=== PATIENT | female | born 1960 | race Caucasian/White ===

== ENCOUNTER 2020-07-17 09:33 | Outpatient (CLI) | payer OTHER, SELFPAY ==
--- NOTE | ~2020-07-17 | MM_ITS ---
EXAMINATION: MM screening [facility] BI w cole HISTORY: Screening mammogram TECHNIQUE: Craniocaudal and mediolateral oblique 3-D tomosynthesis images were obtained and synthetic 2-D images were generated. CAD analysis was submitted and interpreted. COMPARISON: 01/03/2019 bilateral digital screening mammogram 08/31/2015 diagnostic right digital mammogram 08/24/2015 bilateral digital screening mammogram BREAST PARENCHYMAL COMPOSITION: There are scattered areas of fibroglandular density. FINDINGS: Left axillary tail stable appearing lymph nodes. There is no evidence of suspicious mass, c alcification, or architectural distortion to suggest malignancy in either breast. There has been no s uspicious interval change. IMPRESSION: 1. No mammographic evidence of malignancy. 2. Recommend routine screening mammography in one year. BI-RADS Category 2: Benign finding(s). Reviewed, dictated and finalized at location A.
== END 2020-07-17 09:34 | disposition home or self-care (01) ==
LOC: ANHIMG 09:35
PROVIDERS: Visit Provider Obstetrics & Gynecology
DX: Z12.31 Encounter for screening mammogram for malignant neoplasm of breast (principal)
CPT/HCPCS: 77063; 77067

== ENCOUNTER 2022-06-25 08:25 | Outpatient (CLI) | payer OTHER, SELFPAY ==
--- NOTE | ~2022-06-25 | MM_ITS ---
EXAMINATION: MM screening [facility] BI w cole HISTORY: Screening mammogram TECHNIQUE: Craniocaudal and mediolateral oblique 3-D tomosynthesis images were obtained and synthetic 2-D images were generated. CAD analysis was submitted and interpreted. COMPARISON: 07/18/2019, 01/03/2019, 08/31/2015, 08/24/2015 BREAST PARENCHYMAL COMPOSITION: There are scattered areas of fibroglandular density. FINDINGS: No suspicious mass, calcification, or architectural distortion are identified in either yevgeniy ast to suggest malignancy. There has been no suspicious interval change. IMPRESSION: 1. No mammographic evidence of malignancy. 2. Recommend routine screening mammography in one year. BI-RADS Category 1: Negative Reviewed, dictated and finalized at location A.
--- NOTE | ~2022-06-25 | DEXA_ITS ---
Bone Density Report Name: VAN MCDONNELL Age: 62 Sex: Female Ethnicity: White Date of : 1960 Indication: postmenopausal; screening for osteoporosis; height loss; Referring Provider: HARLEY RAMIREZ Study: Bone densitometry was performed. Exam Date: June 25, 2022 Accession number: [id number] Bone Density: Region BMD T-score Z-score Classification AP Spine(L1-L4) 0.866 -1.6 -0.2 Osteopenia Femoral Neck (Left) 0.650 -1.8 -0.5 Osteopenia Total Hip (Left) 0.707 -1.9 -0.9 Osteopenia Femoral Neck (Right) 0.697 -1.4 0.0 Osteopenia Total Hip (Right) 0.735 -1.7 -0.7 Osteopenia Total Hip Mean 0.721 -1.8 -0.8 Osteopenia World Health Organization criteria for BMD impression classify patients as: Normal (T-score at or above -1.0), Osteopenia (T-score between -1.0 and -2.5), or Osteoporosis (T-score at or below -2.5). 10-year Fracture Risk(1): Major Osteoporotic Fracture 8.7% Hip Fracture 0.9% Reported Risk Factors: [place] (), Neck BMD=0.650, BMI=23.5 (1) FRAX(R) Version 3.08. Fracture probability calculated for an untreated patient. Fracture probability may be lower if the patient has received treatment. Clinical Information Provided by Patient: Has used the following medications: Vitamin D, Calcium Patient maximum height was 67 Menopause Age: 51 Drinks caffeinated beverages Onset of menses at age 12 Number of children 6 Impression: The patient has low bone mass, based on the Left Total Hip T-score. The patient has an estimated ten-year risk of hip fracture of 0.9% and an estimated ten-year risk of major fracture of 8.7%, based on the WHO FRAX algorithm. Discussion: BONE DENSITY IS LOW AT ONE OR MORE SKELETAL SITES. This patient's lowest T-score is low at one or more skeletal sites. It meets the World Health Organization's (WHO) criteria for ?low bone mass? (T-score between -1.0 and -2.5). The patient's 10-year risk of fracture as calculated by FRAX is less than the threshold where pharmacological therapy is recommended by the National Osteoporosis Foundation (NOF). However, all treatment decisions require clinical judgment and consideration of individual patient factors, including patient preferences, comorbidities, previous drug use, risk factors not captured in the FRAX model (e.g., frailty, falls, vitamin D deficiency, increased bone turnover, interval significant decline in bone density) and possible under or overestimation of fracture risk by FRAX. The patient should follow a healthful lifestyle (good nutrition with adequate calcium and vitamin D, and appropriate weight-bearing exercise). Follow-Up: Consider repeating this study in 2 to 3 years to reassess this patient's status, or sooner if there is some new clinical indication. Reported by: [facility] on
== END 2022-06-25 08:26 | disposition home or self-care (01) ==
PROVIDERS: Visit Provider Obstetrics & Gynecology
DX: Z12.31 Encounter for screening mammogram for malignant neoplasm of breast (principal); M85.88 Other specified disorders of bone density and structure, other site; M85.852 Other specified disorders of bone density and structure, left thigh; M85.851 Other specified disorders of bone density and structure, right thigh
CPT/HCPCS: 77063; 77067; 77080

== ENCOUNTER 2022-11-06 11:35 | Observation (INO) | payer OTHER, SELFPAY ==
[2022-11-06] VITALS (7 sets, daily range): BP systolic 108–122; BP diastolic 66–91; PULSE 91–98; RESP 14–21; TEMP 36.1–36.7; O2SAT 100; BMI 23.4
--- NOTE | ~2022-11-06 | CT_ITS ---
EXAMINATION: CTA chest PE protocol DATE: 11/06/2022 14:55 INDICATION: Tachycardia, shortness of breath TECHNIQUE: Computed tomography angiography (CTA) of the chest was performed with 100 mL Omnipaque-350 intravenous contrast timed to evaluate the pulmonary arteries. Coronal maximum intensity projection 3D-reconstructions were created by the technologist. The dose-length product (DLP) was 196.98 mGy-cm. Automated exposure control and iterative reconstruction technique were employed. COMPARISON: None. FINDINGS: The pulmonary arteries are well-opacified. No pulmonary embolism is identified. There is mi ld dependent atelectasis. The lungs are free of focal airspace opacities. No pleural effusion or pneu mothorax. No pathologically enlarged thoracic lymph nodes are identified. The heart size is normal. S tones are present in the nondistended gallbladder. There is moderate thoracic spondylosis. IMPRESSION: 1. No pulmonary embolus identified. Reviewed, dictated and finalized at location F.
--- NOTE | 2022-11-06 13:51 | ECG_ITS ---
Measurements Intervals [place] Rate: 89 P: 64 AK: 151 QRS: -18 QRSD: 91 T: 44 QT: 354 QTc: 433 Interpretive Statements SINUS RHYTHM POSSIBLE LEFT ATRIAL ENLARGEMENT INCOMPLETE RIGHT BUNDLE BRANCH BLOCK DELAYED PRECORDIAL R/S TRANSITION BORDERLINE ECG NO PREVIOUS ECG AVAILABLE FOR COMPARISON Electronically Signed On 11-06-2022 14:26:36 CDT by Eder Christy D.O.
[2022-11-06 14:45] LABS: Estimated CRCL calculation 72 ml/min; Estimated Glomerular Filt Rate > 60
[2022-11-06 14:45] LABS: Basophils Percent Auto 0.6 % (0.2-1.2); Eosinophils Percent Auto 0.8 % (0-4.4); Hematocrit 33.6 % (37.0-47.0); Hemoglobin 10.9 g/dL (12.0-15.0); Immature Granulocyte Absolute 0.01 K/mm3 (0.00-0.031); Immature Granulocyte Percent A 0.2 % (0-0.5); Lymphocytes Absolute Auto 1.08 K/mm3 (0.9-3.2); Lymphocytes Percent Auto 22.8 % (18.3-44.2); Mean Corpuscular HGB Conc 32.4 g/dl (32-36); Mean Corpuscular Hemoglobin 30.8 pg (26-34); Mean Corpuscular Volume 94.9 fl (80-100); Mean Platelet Volume 8.3 fl (7.4-10.4); Monocytes Absolute Auto 0.4 K/mm3 (0.1-0.6); Monocytes Percent Auto 8.4 % (2.6-8.5); Neutrophils Absolute Auto 3.2 K/mm3 (1.3-6.7); Neutrophils Percent Auto 67.2 % (45.5-73.1); Platelet Count Result 354 k/mm3 (150-375); Red Blood Count 3.54 M/mm3 (4.2-5.4); Red Cell Distribution Width 14.2 % (11.5-14.5); White Blood Count 4.7 K/mm3 (4.5-10.0)
--- NOTE | 2022-11-06 14:45 | ED.GENADULT ---
HPI - General Adult General Chief complaint: Recheck/Abnormal Lab/Rx Stated complaint: high heartrate Time Seen by Provider: 11/06/22 13:22 History of Present Illness HPI narrative: Shefali Hancock is a 62 y/o female who presents with reports of feeling well up until 2 days ago when she noticed that her heart rate was 140, ( she then states the following day yesterday ) she felt generalized tired and she noticed that her heart rate was intermittently high, the highest was 140. Today she got up and she felt a little short of breath when she walked up the stairs which was new for her. Denies cough/ fever /chills /chest pain / hx of blood clots/ OK/ or any other cardiac hx. She also reports that she is about 3 weeks post a left hip surgery / that she had done at [place]. She saw her PCP today and was sent here for further evaluation Patient denies Related Data Home Medications Medication Instructions Recorded Confirmed vitamin C 500 mg-multivitamin with tablet PO 02/01/19 03/30/21 minerals chewable tablet (Emergen-C) Allergies Allergy/AdvReac Type Severity Reaction Status Date / Time Sulfa (Sulfonamide Allergy Unknown Unknown Verified 11/06/22 11:47 Antibiotics) sulfanilamide Allergy Unknown Unknown Verified 11/06/22 11:47 sulfite Allergy Unknown Unknown Verified 11/06/22 11:47 Review of Systems Review of Systems: CONSTITUTIONAL: Denies fever, chills, or sweats. EYES: Denies visual changes, redness, or discharge. ENT: Denies rhinorrhea, congestion, sore throat, or otalgia. CARDIOVASCULAR: Denies chest pain, reports noticing heart rate go up to 140 for the past two days, denies any edema. RESPIRATORY: Denies cough, reports having some SOB with exertion that started today. GASTROINTESTINAL: Denies abdominal pain, nausea, vomiting, or diarrhea. GENITOURINARY: Denies dysuria or hematuria. SKIN: Denies rash or itching. MUSCULOSKELETAL: Denies back pain, joint pain, or myalgia. NEUROLOGIC: Denies headache, numbness, dizziness, or weakness. PSYCHIATRIC: Denies anxiety or depression. [facility] Past Medical History Medical History (Updated 11/06/22 @ 18:55 by Pavithra Davis) Hip replacement planned Surgical History Surgical History H/O colposcopy with cervical biopsy Social History Social History (Updated 11/06/22 @ 10:52 by Saba Alex MA) Smoking status: Former smoker Second hand tobacco smoke exposure: No Alcohol intake: current Drinks per week: 5 Substance use: never Substance use type: does not use Lack of Transportation: No Lack of Food: Never True Current Housing: I Have Housing Concerned About Future Housing: No Difficulty Paying Gas/Electric Bills: No Difficulty Paying for Meds: No Currently Unemployed: No Education: Decline to Answer Difficulty w/ Childcare or Family Care: No Exam Narrative: GENERAL: Well-appearing, well-nourished, and in no acute distress. HEAD: Normocephalic, atraumatic. EYES: PERRLA and EOMI. ENT: Nares clear, no rhinorrhea or epistaxis. Mucous membranes moist. Oropharynx without tonsillar hypertrophy exudate or other lesions. NECK: Supple. No adenopathy or masses. No carotid bruits or JVD CHEST: Clear to auscultation. No respiratory distress. No wheezes rales or rhonchi HEART: Regular rate and tachy at 98 rhythm. Normal peripheral pulses. ABDOMEN: Soft, nontender, nondistended, normal active bowel sounds. EXTREMITIES: Normal range of motion. No edema. SKIN: Warm, dry, no rash. NEURO: No focal deficits. Alert and oriented x3. PSYCH: Normal mood and affect. Course Vital Signs Vital signs: Vital Signs Temperature 36.1 C L 11/06/22 11:47 Pulse Rate 98 11/06/22 11:47 Respiratory Rate 18 11/06/22 11:47 Blood Pressure 122/89 11/06/22 11:47 Pulse Oximetry 100 11/06/22 11:47 Temperature 36.1 C L 11/06/22 11:47 Pulse Rate 98
[2022-11-06 14:56] LABS: Alanine Aminotransferase 30 U/L (6-35); Albumin Level 4.7 g/dL (3.5-5.1); Alkaline Phosphatase 89 U/L (38-126); Anion Gap 7 mmol/L (8-16); Aspartate Amino Transferase 39 U/L (14-36); Bilirubin,Total 0.7 mg/dL (0.2-1.3); Blood Urea Nitrogen 13 mg/dL (7-17); Calcium 9.5 mg/dL (8.4-10.2); Carbon Dioxide 29 mmol/L (22-30); Chloride 101 mmol/L (98-107); Estimated CRCL calculation 72 ml/min; Estimated Glomerular Filt Rate > 60; Glucose 94 mg/dL (65-110); Lipase 85 U/L (23-300); Potassium 4.6 mmol/L (3.4-5.0); Sodium 137 mmol/L (137-145)
[2022-11-06 14:57] LABS: Prothrombin Time 13.3 Seconds (11.1-14.7)
[2022-11-06 15:07] LABS: NT Pro B Type Natriuretic Pept 781 pg/mL (19.9-100); Troponin I < 0.012 ng/mL (0.000-0.034)
[2022-11-06 18:26] LABS: Troponin I < 0.012 ng/mL (0.000-0.034)
--- NOTE | 2022-11-06 21:44 | PM.IMHP ---
H&P: HPI History of Present Illness Date/Time: 11/06/22 21:44 Chief Complaint: Tachycardia, SOB Narrative: 62 y/o F presents here with tachycardia and SOB with exertion with PMH of bilateral hip replacement, L side done 3 weeks ago. Patient presents here with new shortness of breath on exertion and an elevated heart rate while at rest. in wears smart watch, this alerted her that her heart rate was in the 140s. initial occurrence was Thursday around , Thursday she reports that her heart rate was elevated for most of the day. She also noted that her heart rate was elevated while she was resting watching TV and when she had first woken up in the morning. no association to activity level per patient history. patient saw her PCP this morning, described events to her and it was recommended she seek further care. only medication she is currently taking is Tylenol, 1 g t.i.d. for hip pain related to her recent operation. She did make note that after her operation, she required 1 unit of blood. Jean Paul+. She reports her hemoglobin was 7.5, her baseline is on average around 12.3. she denies anxiety, recent weight loss, diaphoresis, constipation, diarrhea, or nausea. No recent flu-like symptoms, fever, or cough. Review of Systems Review of Systems: All systems reviewed & are unremarkable except as noted in HPI and below [facility] Surgical History Surgical History (Updated 11/06/22 @ 21:56 by Helen Ryan APRN) History of colposcopy with cervical biopsy History of left hip replacement History of right hip replacement Social History Social History (Updated 11/06/22 @ 21:57 by Helen Ryan APRN) Social History: Currently lives at home alone. Surrogate decision maker- Helen Hancock (daughter). Smoking status: Former smoker Second hand tobacco smoke exposure: No Additional smoking assessment comments: 0.5 ppd, 20 years Alcohol intake: current Drinks per week: 5 Substance use: never Substance use type: does not use Lack of Transportation: No Lack of Food: Never True Current Housing: I Have Housing Concerned About Future Housing: No Difficulty Paying Gas/Electric Bills: No Difficulty Paying for Meds: No Currently Unemployed: No Education: Decline to Answer Difficulty w/ Childcare or Family Care: No Meds Home Medications and Allergies Home Medications Medication Instructions Recorded Confirmed Type acetaminophen 500 mg tablet 1,000 mg PO Q8H 11/06/22 11/06/22 History Allergies Allergy/AdvReac Type Severity Reaction Status Date / Time Sulfa (Sulfonamide Allergy Unknown Unknown Verified 11/06/22 11:47 Antibiotics) sulfanilamide Allergy Unknown Unknown Verified 11/06/22 11:47 sulfite Allergy Unknown Unknown Verified 11/06/22 11:47 Vital Signs Vital Signs - 24 hr 11/06/22 11:47 11/06/22 13:18 11/06/22 14:30 Temperature 97 F L Pulse Rate 98 91 Respiratory Rate 18 14 Blood Pressure 122/89 110/84 Pulse Oximetry 100 100 100 Oxygen Delivery Room Air 11/06/22 17:39 11/06/22 21:07 Temperature Pulse Rate 98 94 Respiratory Rate 16 21 H Blood Pressure 122/91 H 113/77 Pulse Oximetry 100 100 Oxygen Delivery H&P: Results Labs Labs: Short CBC 11/06/22 Range/Units 14:34 WBC 4.7 (4.5-10.0) K/mm3 Hgb 10.9 L (12.0-15.0) g/dL Hct 33.6 L (37.0-47.0) % Plt Count 354 (150-375) k/mm3 BMP 11/06/22 11/06/22 14:34 14:44 Sodium 137 Potassium 4.6 Chloride 101 Carbon Dioxide 29 BUN 13 Creatinine 0.60 L 0.60 L Glucose 94 Calcium 9.5 Cardiac Enzymes 11/06/22 11/06/22 Range/Units 14:34 17:54 Troponin I < 0.012 < 0.012 (0.000-0.034) ng/mL Liver Function 11/06/22 Range/Units 14:34 Total Bilirubin 0.7 (0.2-1.3) mg/dL AST 39 H (14-36) U/L ALT 30 (6-35) U/L Alkaline Phosphatase 89 (38-126) U/L Albumin 4.7 (3.5-5.1) g/dL Assessment and Plan Assessment and plan (
--- NOTE | 2022-11-06 22:28 | ADMGEN ---
This patient, Shefali Hancock, was admitted to Medical Room 247-. Patient/family oriented to hospital policies and general routines including ID bracelet, bed and alarms, visiting hours, pain management, procedures, bathroom and other care routines, personal items, smoking policy, room service/diet, and visiting hours. Information on how to activate the Rapid Response Team has been discussed. Patient/Family are encouraged to report perceived risks to care and to ask questions if they do not understand what they are told or what they should do.
[2022-11-07] VITALS: PULSE 96
--- NOTE | 2022-11-07 | ECHO_ITS ---
Patient Info Name: Shefali Hancock Age: 62 years : 1960 Gender: Female Ht: 64 in Wt: 143 lbs BSA: 1.72 m2 HR: 96 bpm BP: 108 / 66 mmHg Heart Rhythm: Sinus Rhythm Technical Quality: Fair Exam Date: 11/07/2022 12:15 PM Exam Location: [facility] Pulmonary Patient Status: Outpatient Admit Date: 11/06/2022 Staff Ordering Physician: Helen Ryan APRN Cyber Crime Investigator: Komal Tracey RDCS Attending Provider: Salo Hill MD Referring Physician: Shelby GILL; Exam Type: CA echo doppler color flow Study Info Indications - mildly elevated BNP with tachycardia and sob Complete two-dimensional, color flow and Doppler transthoracic echocardiogram is performed. Summary 1. Complete two-dimensional, color flow and Doppler transthoracic echocardiogram is performed. 2. Normal left ventricular size systolic and diastolic function. 3. Normal appearing right ventricle. 4. Normal appearing valves. Left Ventricle Left ventricular chamber dimension is normal. Left ventricular systolic function is normal, estimated at 60-65%. The left ventricular diastolic function is normal. Right Ventricle Right ventricular chamber dimension is normal. Left Atria Left atrial chamber dimension is normal. Right Atria Right atrial chamber dimension is normal. Aortic Valve The aortic valve is trileaflet. There is mild aortic valve sclerosis. Pulmonic Valve The pulmonic valve is not well visualized. Mitral Valve The mitral valve has normal leaflets. Tricuspid Valve The tricuspid valve leaflets are normal. Pericardium/Pleural The pericardium appears normal. Aorta The aortic root size at the sinus of Valsalva is normal. Left Ventricular Outflow Tract Name Value Normal LVOT 2D LVOT Diameter 2.0 cm LVOT Doppler LVOT Peak Gradient 7 mmHg LVOT Mean Gradient 3 mmHg LVOT VTI 21 cm LVOT VTI/AV VTI Ratio 0.7 LVOT Stroke Volume 64 ml LVOT CO 5.6 l/min LVOT CI 3.3 l/min/m2 Pulmonic Valve Name Value Normal RVOT Doppler RVOT Peak Gradient 2 mmHg PV Doppler PV Peak Gradient 4 mmHg Mitral Valve Name Value Normal MV Doppler MV Decel Pierce 698 cm/s2 MV PHT 33 ms MV Area (PHT) 6.7 cm2 4.0-5.0 MV Diastolic Function MV E Peak
[2022-11-07 04:00] VITALS: PULSE 96
[2022-11-07 06:00] VITALS: BP 103/67; PULSE 93; RESP 16; TEMP 36.9; O2SAT 98
[2022-11-07 08:00] VITALS: PULSE 88
[2022-11-07 12:00] VITALS: PULSE 87
--- NOTE | 2022-11-07 15:04 | PM.CNCAR ---
Assessment and Plan Assessment and plan (1) Tachycardia: Code(s): R00.0 - Tachycardia, unspecified Status: Acute Plan this is an otherwise relatively healthy 62-year-old lady who recently had hip replacement done at [place]. She came to the hospital with the observation that her heart rate was quite rapid for a couple of days. Objectively that does not appear to be the case. In the hospital emergency room and on telemetry since admission her cardiac rhythm appears to be normal. Her cardiovascular exam EKG and echo are also essentially unremarkable. I believe she can be discharged to home and I will arrange for a be done as an outpatient to ensure that there are no other arrhythmias that we have not identified. I will see her in follow-up after the Holter is performed. Mati Garner MD [facility] History of Present Illness History of Present Illness Consult date/time: 11/07/22 15:04 Reason For Visit: shortness of breath with exertion/ elevated bnp Narrative: This is a 62-year-old woman I am seeing this afternoon at the request of the hospitalist because of tachycardia. Patient is not known to me prior to this encounter and she says she is not known to have any cardiac problems prior to this. She says that she was concerned about her cardiac status when she was noticing that her Fitbit watch was reporting that her heart rate was 140 starting about Thursday of this week. She was not particularly symptomatic with sense of tachycardia or palpitations she did not have any chest pain or shortness of breath. She was concerned that she might be having a panic attack because she says she has a history of these in the past but she really did not feel anxious or panicked about anything. She says that she reported these observations to her PCP in the office yesterday and was directed to the emergency room where she was then evaluated. A from what I see in the hospital record she was not particularly tachycardic in PCP office nor in the emergency room. Her electrocardiogram in the emergency room shows normal sinus rhythm with an incomplete right bundle branch block and no other significant abnormalities. She feels well at this time and is hoping to be discharged. Her telemetry since she has been hospitalized has shown normal sinus rhythm without any arrhythmias. An echocardiogram done this morning in the hospital is unremarkable. The patient states that she does have a history of degenerative joint disease and had a hip replacement operation at [facility] 3 weeks ago. Because of this CT scan of her chest was done in the emergency room which was negative for pulmonary embolism. Review of Systems Constitutional: Constitutional: Reports no additional constitutional complaints Eyes: Eyes: Reports no additional eye complaints ENT: Reports system reviewed and no additional complaints, except as documented Cardiovascular: Cardiovascular: Reports as per HPI Respiratory: Respiratory: Reports no additional respiratory complaints Gastrointestinal: Gastrointestinal: Reports no additional gastrointestinal complaints Musculoskeletal: Musculoskeletal: Reports as per HPI Integumentary/Breasts: Skin/Breast: Reports system reviewed and no additional complaints, except as docu Neurologic: Reports system reviewed and no additional complaints, except as documented Endocrine: Endocrine: Reports no additional endocrine complaints Hematologic/Lymphatic: Hematologic/Lymphatic: Reports no additional hematologic/lymphatic complaints Allergic/Immunologic: Allergic/Immunologic: Reports no additional allergic/immunologic complaints [facility] Surgical History Surgical History (Updated 11/06/22 @ 21:56 by Helen Ryan APRN) History of colposcopy with cervical biopsy History of left hip replacement History of right hip replacement Social History Social History (Updated 11/06/22 @ 21:57 by Helen Ryan APRN) Social History: Currentl
--- NOTE | 2022-11-07 15:41 | PM.DS ---
DS: Admitting Diagnosis Discharge Date 11/07/22 Admitting Diagnosis shortness of breath DS: Discharge Diagnosis Discharge Diagnosis (1) Exertional shortness of breath: Code(s): R06.02 - Shortness of breath Status: Acute DS: Summary Hospital Course Hospital Course: 62F w/ no significant PMH except for recent replacement presented complaining of anxiety attack with subsequent HR reading of 140 on her smart watch. It lasted a few days which is when she was told by her PCP to present to the ER. No further symptoms identified by patient while she was here, and tele monitoring did not reveal any arrhythmias or tachycardias. She had a CT chest done which done not reveal abnormalities, including a PE. Cardiology was consulted, and they cleared her for discharge, holter monitor will be setup outpatient and she will follow up with Dr. Ayala. More than 30 minutes spent on discharge planning and documentation. Time Spent with Patient Time attestation: Total time spent providing and/or coordinating discharge services: Exam Const: General: cooperative and no acute distress Resp: Effort & Inspection: normal respiratory effort Auscultation: clear to auscultation bilaterally Cardio: Rate: regular rate Rhythm: regular rhythm Heart sounds: S1 normal heart sound present and S2 normal heart sound present GI: GI Palp: No abdominal tenderness Auscultation: normal bowel sounds DS: Data Data Completed and Pending Labs on day of discharge: Labs from last 24 hours 11/06/22 11/06/22 23:40 17:54 Troponin I < 0.012 TSH (Reflex) 2.320 Discharge Plan Discharge Attending physician on discharge: Goldie Robert Consulting providers: Dee Rasmussen; Afsaneh Leon Discharging Clinician: Goldie Robert Patient Disposition: Home, Self-Care Activity: june shower Diet: heart healthy Stand Alone Forms: General Discharge Information Follow-up/Referrals: Mati Garner MD [Physician] - Call for Appointment Klaudia Galvez DO [Primary Care Provider] - 4 Weeks Discharge Medications: Continued acetaminophen 500 mg tablet 1,000 mg PO Q8H Date of admission: 11/06/22 18:48 Primary Care Provider: Klaudia Galvez Admitting Provider: Salo Hill Attending physician on admission: Salo Hill Condition: Stable
[2022-11-07 15:47] VITALS: BP 113/74; PULSE 88; RESP 18; TEMP 37.1; O2SAT 100
== END 2022-11-07 15:55 | disposition home or self-care (01) ==
LOC: ANHED 13:26 → ANH3MEDSUR 18:55 → ANH2MED 11-07 01:04 → ANH3MEDSUR 11-10 07:56
PROVIDERS: Student in an Organized Health Care Education/Training Program; Admitting Provider Hospitalist; Emergency Provider Nurse Practitioner Family; PCP Family Medicine; Visit Provider General Practice
DX: R00.0 Tachycardia, unspecified (principal); R06.02 Shortness of breath; R53.83 Other fatigue; D64.9 Anemia, unspecified; J98.11 Atelectasis; I45.10 Unspecified right bundle-branch block; I35.0 Nonrheumatic aortic (valve) stenosis; R79.89 Other specified abnormal findings of blood chemistry; Z96.643 Presence of artificial hip joint, bilateral; Z87.891 Personal history of nicotine dependence; F10.90 Alcohol use, unspecified, uncomplicated; Z79.1 Long term (current) use of non-steroidal anti-inflammatories (NSAID); Z79.899 Other long term (current) drug therapy
CPT/HCPCS: 36415; 71275; 80053; 83690; 83880; 84443; 84484; 85025; 85610; 93005; 93306; 99285; G0378; Q9967

== ENCOUNTER 2023-09-18 08:28 | Outpatient (CLI) | payer OTHER, SELFPAY ==
--- NOTE | ~2023-09-18 | MM_ITS ---
EXAMINATION: MM screening [facility] BI w cole HISTORY: Screening TECHNIQUE: Craniocaudal and mediolateral oblique 3-D tomosynthesis images were obtained and synthetic 2-D images were generated. CAD analysis was submitted and interpreted. COMPARISON: Comparison to multiple prior studies sequentially, with oldest reviewed study dated 05/18. BREAST PARENCHYMAL COMPOSITION: Not dense: There are scattered areas of fibroglandular density. FINDINGS: Stable asymmetry of the right breast on MLO view posterior to the nipple. There is no evide nce of suspicious mass, calcification, or architectural distortion to suggest malignancy in either br east. There has been no suspicious interval change. IMPRESSION: 1. No mammographic evidence of malignancy. 2. Recommend routine screening mammography in one year. BI-RADS Category 2: Benign finding(s). Reviewed, dictated and finalized at location B.
== END 2023-09-18 08:29 | disposition home or self-care (01) ==
PROVIDERS: PCP Family Medicine; Visit Provider Family Medicine
DX: Z12.31 Encounter for screening mammogram for malignant neoplasm of breast (principal)
CPT/HCPCS: 77063; 77067

== ENCOUNTER 2025-01-23 07:15 | Outpatient (CLI) | payer OTHER, SELFPAY ==
--- NOTE | ~2025-01-23 | MM_ITS ---
EXAMINATION: MM screening [facility] BI w [facility]le HISTORY: Screening TECHNIQUE: Craniocaudal and mediolateral oblique 3-D tomosynthesis images were obtained and synthetic 2-D images were generated. CAD analysis was submitted and interpreted. COMPARISON: Comparison to multiple prior studies sequentially, with oldest reviewed study dated 08/24/2015. BREAST PARENCHYMAL COMPOSITION: Not dense: There are scattered areas of fibroglandular density. FINDINGS: There is no evidence of suspicious mass, calcification, or architectural distortion to suggest malignancy in either breast. There has been no suspicious interval change. IMPRESSION: 1. No mammographic evidence of malignancy. 2. Recommend routine screening mammography in one year. BI-RADS Category 1: Negative Reviewed, dictated and finalized at location I. 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
--- OUTSIDE RECORDS SUMMARY | 2025-01-23 07:18 | XMS_ITS | Encounter Summary ---
Author Organization [facility] Address [address] [place], [place] [address] [address] Care Team Providers Care Plate And Frame Filter Operator Name Role Phone Unavailable Primary Care Provider Unavailabl e Encounter Details Date Type Department Care Team (Late st Contact Info) Description 09/09/2022 Lab Requisition [facility] - DermPath Lab [address] [facility], [place] [address] Mackenzie Bryant MD [address] [facility] 3 [place] [address] Social History Tobacco Use Types Packs/Day Years Used Date Smoking Tobacco: Never Assessed Comments Unknown Sex and Gender Information Value Date Recorded Sex Assigned at Not on file Legal Sex Female 8:25 AM CDT Gender Identity Female 12/20/2019 8:25 AM CDT Sexual Orientation Not on file documented as of this encounter Plan of Treatment Not on file documented as of this encounter Procedures Procedure Name Priority Date/Time Associated Diagnosis Comments DERMATOPATHOLOGY Routine 09/09/2022 10:3 7 AM CDT documented in this encounter Results * DERMATOPATHOLOGY (09/09/2022 10:37 AM CDT) Case Report Dermatopathology Report Case: [id number] Authorizing Provider: Mackenzie Bryant MD Collected: 09/09/2022 10:37 AM Ordering Location: [facility] DermPath Lab Received: 09/09/2022 04:17 PM Pathologist: Rusty Mohan MD Specimen: Skin, right superior forehead 2:11 PM CDT DERMATOPATHOLOGY LABORATORY Final Diagnosis Specimen A. SKIN, right superior forehead: SQUAMOUS CELL CARCINOMA IN SITU (MATT'S DISEASE) WITH FOLLICULAR EXTENSION (D04.39) OVERLYING CUTANEOUS HORN (L85.8) 3 2:11 PM CDT DERMATOPATHOLOGY LABORATORY at 1411 CDT Clinical History PINK [place]QUE; SCC VS SK 3 2:11 PM CDT DERMATOPATHOLOGY LABORATORY Gross Description Specimen A: Received is one formalin filled container labeled with the patient's name and designated right superior forehead. The specimen consists of a shave biopsy measuring 8x7x2 mm. Jar 0. 3 2:11 PM CDT DERMATOPATHOLOGY LABORATORY Microscopic Description Specimen A. SKIN, right superior forehead: The epidermis shows parakeratosis, full thickness disorderly maturation of keratinocytes, mitoses at different levels, and dyskeratotic cells. There is a column of marked compact hyperkeratosis. 3 2:11 PM CDT DERMATOPATHOLOGY LABORATORY Disclaimer An external and internal positive and negative controls are appropriate for the histochemical, immunohistochemical and immunofluorescence stain(s) in this case (if any), except where stated explicitly. The performance characteristics of the stain(s) cited in this report were developed and its performance characteristic determined by the Dermatopathology Laboratory at [facility], directed by Dr. Jessee Mohan. These tests need not be, and therefore are not, approved by the [place] Food and Drug Administration. The tests are used for clinical purposes. Billing Codes Specimen Charges Stain Charges 02803 1 3 2:11 PM CDT DERMATOPATHOLOGY LABORATORY Embedded Images 3 2:11 PM CDT DERMATOPATHOLOGY LABORATORY Pathology/Cytolo gy TISSUE SPECIMEN FROM SKIN / Unknown 09/09/2022 10:37 AM CDT 09/09/2022 4:17 PM CDT us Mackenzie Bryant MD LAB - PATHOLOGY/CYTOLOGY ORD ERABLES Final Result DERMATOPATHOLOGY LABORATORY [facility] - Department of Dermatology [address] [place] [address], [facility] [phone] documented in this encounter Visit Diagnoses Not on filedocumented in this encounter
--- OUTSIDE RECORDS SUMMARY | 2025-01-23 07:18 | XMS_ITS | Encounter Summary ---
Author Organization [facility] Address [address] [place] [address] Phone Care Team Providers Care Towel Distributor Name Role Phone Klaudia Galvez DO Primary Care Provider [phone]- [phone] Encounter Details Date Type Department Care Team (Late st Contact Info) Description 01/02/2025 Telephone [facility] Medicine Cardiology [address] [facility] 8th [place] [address] [place] [address] Carlos Eduardo Mcneil MD PhD [address] [facility] [address] [place], [place] [id number] Social History Tobacco Use Types Packs/Day Years Used Date Smoking Tobacco: Former Cigarettes Q uit: 04/23/2022 Passive Smoke Exposure: Past Alcohol Use Standard Drinks/Week Comments Yes 4 (1 standard drink = 0.6 oz pur e alcohol) OASIS D0700: Social Isolation Answer Da te Recorded Frequency of experiencing loneliness or isolatio n Never 07/03/2022 AUDIT-C Answer Date Recorded Q1: How often do you have a drink containing alcohol? 4 or more times a week 10/10/2024 Q2: How many drinks containi ng alcohol do you have on a typical day when you are drinking? 1 or 2 Q3: How often do you have si x or more drinks on one occasion? Never 10/10/2024 Personal Safety Answer Date Recorded Have you ever been in or are you currently in a harmful physical or emotional relationship or is someone making you feel afraid or unsafe? Denies 10/10/2024 Comments No Sex and Gender Information Value Date Recorded Sex Assigned at Not on file Legal Sex Female 5:34 AM PHYSICIAN INDUSTRIAL Gender Identity Female 12/13/2019 8:33 AM CDT Sexual Orientation Straight 12/13/2019 8: 33 AM CDT documented as of this encounter Functional Status documented as of this encounter Miscellaneous Notes * Telephone Encounter - Mounika Huggins RN - 01/05/2025 2:00 PM PHYSICIAN INDUSTRIAL Prep for case completed. Shefali Hancock,:1960, is scheduled for SVT ablation procedure on 03/23/[address] Mcneil. The pt will be called by the [facility] with the arrival time 1-3 days prior to procedure. Office visit note or progress note in chart with the plan: Yes The patient : Will require overnight stay The patient will need CPAP Testing: No testing required Please include the following medication instructions: Do not take any oral medications the morning of the procedure PRE-CERT: No Pre-Cert message needed Please schedule the following follow up appointments: Ablation follow up appointment The Patient case has been placed on the EP calendar. Please mail Patient information letter to patient. Thanks ICIAN INDUSTRIAL * Telephone Encounter - Mounika Huggins RN - 01/05/2025 1:54 PM PHYSICIAN INDUSTRIAL Spoke to Shefali in response to [employer] message. She prefers to change to 03/23/25. Ep calendar updated. ICIAN INDUSTRIAL * Telephone Encounter - Aislinn Wesley - 01/03/2025 2:13 PM CST [facility] PT CALLING TO CONFIRM 04/20 PROCEDURE ICIAN INDUSTRIAL * Telephone Encounter - Mounika Huggins RN - 01/03/2025 2:02 PM PHYSICIAN INDUSTRIAL Spoke with Shefali. She preferred date in March. Tentatively placed on 04/20/25. Ep calendar updated. ICIAN INDUSTRIAL * Telephone Encounter - Otilia Azar - 01/02/2025 2:45 PM CST [facility] Pt calling stating she would like to schedule ablation. States she would like this done before the last week of February 2025. Please call to schedule ICIAN INDUSTRIAL documented in this encounter Plan of Treatment Upcoming Encounters Date Type Department Care Team (Latest Contact Info) Description 03/23/2025 7:30 AM PHYSICIAN INDUSTRIAL Hospital Encounter [facility] Electrophysiology Lab 1 [place] [address] Carlos Eduardo Mcneil MD PhD [address] [address] Atrial flutter, paroxysmal (HCC); PSVT (paroxysmal supraventricular tachycardia) 03/23/2025 7:30 AM PHYSICIAN INDUSTRIAL - 03/23/2025 11:03 AM PHYSICIAN INDUSTRIAL Surgery [facility] Electrophysiology Lab 1 [place] [address] Carlos Eduardo Mcneil MD PhD [address] [address] ABLATION SUPRAVENTRICULAR TACHYCARDIA (SVT) [address] documented as of this encounter Visit Diagnoses Not on filedocumented in this encounter Care Teams Towel Distributor Relationship Specialty Start Date End Date Klaudia Galvez DO PCP - General Family Medicine 11/07/22 documented as of this encounter
--- OUTSIDE RECORDS SUMMARY | 2025-01-23 07:18 | XMS_ITS | Encounter Summary ---
Author Organization [facility] Address [address] [place], [place] [address] [address] Care Team Providers Care Beef Farmer Name Role Phone Unavailable Primary Care Provider Unavailabl e Encounter Details Date Type Department Care Team (Late st Contact Info) Description 11/18/2023 Lab Requisition [facility] - DermPath Lab [address] [facility], [facility] [place] [address] Mackenzie Bryant MD [address] [facility] 3 [place] [address] Social History Tobacco Use Types Packs/Day Years [...] Priority Date/Time Associated Diagnosis Comments DERMATOPATHOLOGY Routine 11/18/2023 11:0 0 AM CDT documented in this encounter Results * DERMATOPATHOLOGY (11/18/2023 11:00 AM CDT) Case Report Dermatopathology Report Case: [id number] Authorizing Provider: Mackenzie Bryant MD Collected: 11/18/2023 11:00 AM Ordering Location: [facility] - Received: 11/19/2023 06:23 AM DermPath Lab Pathologist: Otilia Sosa MD Specimen: Skin, left thumb 1:59 PM CDT DERMATOPATHOLOGY LABORATORY Final Diagnosis Specimen A. SKIN, left thumb: HYPERKERATOSIS AND PAPILLOMATOSIS WITH HYPERGRANULOSIS (L82.1) (see microscopic description and comment) 09/27/202 4 1:59 PM CDT DERMATOPATHOLOGY LABORATORY at 1359 CDT Clinical History Verrucus papule VV vs SCC 4 1:59 PM CDT DERMATOPATHOLOGY LABORATORY Gross Description Specimen A: Received is one formalin filled container labeled with the patient's name and designated left thumb. The specimen consists of a shave biopsy measuring 7x7x2;3x3x1 mm. Jar 0. 1:59 PM CDT DERMATOPATHOLOGY LABORATORY Microscopic Description Specimen A. SKIN, left thumb: Sections show hyperkeratosis, papillomatosis, hypergranulosis, and acanthosis. There is an area of compact hyperkeratosis that indents the epidermal surface. COMMENT: These findings may represent the superficial portions of a viral verruca, however a clavus was also considered, particularly if there has been chronic pressure at this site. Clinicopathologic correlation is recommended. 1:59 PM CDT DERMATOPATHOLOGY LABORATORY Disclaimer An external and internal positive and negative controls are appropriate for the histochemical, immunohistochemical and immunofluorescence stain(s) in this case (if any), except where stated explicitly. The performance characteristics of the stain(s) cited in this report were developed and its performance characteristic determined by the Dermatopathology Laboratory at [facility], directed by Dr. Jessee Mohan. These tests need not be, and therefore are not, approved by the [place] Food and Drug Administration. The tests are used for clinical purposes. Billing Codes Specimen Charges Stain Charges 75376 1 1:59 PM CDT DERMATOPATHOLOGY LABORATORY Embedded Images 1:59 PM CDT DERMATOPATHOLOGY LABORATORY Pathology/Cytolo gy TISSUE SPECIMEN FROM SKIN / Unknown 11/18/2023 11:00 AM CDT 11/19/2023 6:23 AM CDT us Mackenzie Bryant MD LAB - PATHOLOGY/CYTOLOGY ORD ERABLES Final Result DERMATOPATHOLOGY LABORATORY [facility] - Department of Dermatology [address], [address] [phone] documented in this encounter Visit Diagnoses Not on filedocumented in this encounter
--- OUTSIDE RECORDS SUMMARY | 2025-01-23 07:18 | XMS_ITS | Clinical Summary ---
Author Organization [facility] Address [address] [facility] [place] [address] Care Team Providers Care Seasonal Customer Service Associate Name Role Phone Unavailable Primary Care Provider Unavailabl e Source Comments [facility],non-owned Affiliates and Associated Physician Practices is amultiple site organization consisting of ambulatory clinics and hospital sitesin [place], [place], [place] and [place]. This disclosure is being madepursuant to the Care Everywhere program and may not contain all information available regarding this patient. Last updated 17.[facility] Social History Tobacco Use Types Packs/Day Years Used Date Smoking Tobacco: Never Assessed Comments Unknown Sex and Gender Information Value Date Recorded Sex Assigned at Not on file Legal Sex Female 8:25 AM CDT Gender Identity Female 12/20/2019 8:25 AM CDT Sexual Orientation Not on file Plan of Treatment Health Maintenance Due Date Last Done Comments COLOGUARD (AGES 45-75) - COL ON CA SCREENING 1961 COLON MONITORING 1961 COLONOSCOPY - COLON CA SCREENING 1961 CT COLONOGRAPHY - COLON CA SCREENING 1960 Colorectal Cancer Screening 1961 FIT - COLON CA SCREENING 1961 FLEX SIG - COLON CA SCREENING 1961 LIPID TESTING 1960 MAMMOGRAM 1961 HIV SCREENING 1976 HEPATITIS C SCREENING 04/28/1979 DTAP/TDAP/TD VACCINES (1 - Tdap) 1980 Cervical Cancer Screening 1982 PAP SMEAR 1982 PAP with HPV 05/03/1991 PNEUMOCOCCAL VACCINE 50+ (1 of 1 - PCV) 05/03/2011 ZOSTER VACCINE (1 of 2) 05/03/2011 DEPRESSION SCREENING 02/24/2024 COVID-19 VACCINE ( - 2024-2 6 season) 2024 INFLUENZA VACCINE (#1) 2024 Respiratory Syncytial Virus (RSV) Vaccine Pt: or over 60 yrs (1 - 1-dose 75+ series) 2036 HEPATITIS B VACCINE Aged Out No longe r eligible based on patient's age to complete this topic HIB VACCINE Aged Out No longer eligi ble based on patient's age to complete this topic HPV VACCINE Aged Out No longer eligi ble based on patient's age to complete this topic MENINGOCOCCAL (Group B) VACC INE SHARED DECISION-MAKING Aged Out No longer eligibl e based on patient's age to complete this topic MENINGOCOCCAL GROUPS A/C/Y/W VACCINE Aged Out No longer eligible b ased on patient's age to complete this topic Insurance [facility]
--- OUTSIDE RECORDS SUMMARY | 2025-01-23 07:18 | XMS_ITS | Encounter Summary ---
Author Organization [facility] Address [address] [place] [address] Phone Care Team Providers Care Regional Ehs Manager Name Role Phone Klaudia Galvez DO Primary Care Provider +1- [phone] Encounter Details Date Type Department Care Team (Late st Contact Info) Description 01/02/2025 Results Follow-Up [facility] Cardiology [address] [facility] Advanced Medicine 8th [place] [address] [place] [address] Carlos Eduardo Mcneil MD PhD [address] [facility] [address] [place] [address] ECG 12 lead Social History Tobacco Use Types Packs/Day Years [...] on file Legal Sex Female 5:34 AM DOCUMENT IMAGE TECHNICIAN Gender Identity Female 12/13/2019 8:33 AM CDT Sexual Orientation Straight 12/13/2019 8: 33 AM CDT documented as of this encounter Functional Status documented as of this encounter Plan of Treatment Upcoming Encounters Date Type Department Care Team (Latest Contact Info) Description 03/23/2025 7:30 AM DOCUMENT IMAGE TECHNICIAN Hospital Encounter [facility] Electrophysiology Lab 1 [place] [address] Carlos Eduardo Mcneil MD PhD [address] [address] Atrial flutter, paroxysmal (HCC); PSVT (paroxysmal supraventricular tachycardia) 03/23/2025 7:30 AM DOCUMENT IMAGE TECHNICIAN - 03/23/2025 11:03 AM DOCUMENT IMAGE TECHNICIAN Surgery [facility] Electrophysiology Lab 1 [place] [address] Carlos Eduardo Mcneil MD PhD [address] [address] ABLATION SUPRAVENTRICULAR TACHYCARDIA (SVT) [address] documented as of this encounter Visit Diagnoses Not on filedocumented in this encounter Care Teams Regional Ehs Manager Relationship Specialty Start Date End Date Klaudia Galvez DO PCP - General Family Medicine 11/07/22 documented as of this encounter
--- OUTSIDE RECORDS SUMMARY | 2025-01-23 07:19 | XMS_ITS | Clinical Summary ---
Author Organization [facility] Address [address] [place] [id number] Care Team Providers Care Bushler Name Role Phone MellokittyKlaudia valdez Primary Care Provider [phone] Allergies Active Allergy Reactions Criticality Noted Date Comments Sulfa (Sulfonamide Antibiotics) Unknown 02/24 Tramadol Nausea & Vomiting Low 11/25/2022 Medications aspirin 81 mg enteric coated tablet Take 1 tablet (81 mg total) by mouth daily 30 tablet 11 10/11/2024 6 Active digoxin (LANOXIN) 250 mcg (0.25 mg) tablet Take 1 tablet (250 mcg total) by mouth daily 30 tablet 10/12/2024 6 Active metoprolol tartrate (LOPRESSOR) 25 mg immediate release tablet Take 1 tablet (25 mg total) by mouth 2 (two) times a day 60 tablet 10/11/2024 6 Active calcium carbonate-vitami n D3 1500 mg (600 mg elemental) -200 units per tablet daily 02/01/2019 Ac tive Active Problems Problem Noted Date Diagnosed Date Atrial flutter, paroxysmal 10/11/2024 Overview (11/17/2024): Noted in the hospital in September 2024. Could be atypical atrial flutter by EKG. No anticoagulation because of Eugenio Vasc score of 1 in a female. Referral made to Dr. Mcneil at [place] to consider and discuss ablation She will be seeing him on 02 January 2025. Drinks wine and beer 3-4 times per week. Assessment & Plan (11/17/2024 3:17 PM CDT): Patient denies any palpitations, dizziness or syncope. Exam in the office today revealed a regular rhythm. Patient had numerous questions because daughter is a physician and she suggested these questions. I answered most of them to her satisfaction. No change in medical regimen as we should see what the water pollution specialist thinks. I again advised her to avoid alcohol. PSVT (paroxysmal supraventricular tachycardia) 0 10/10/2024 Overview (11/17/2024): A 5 beat run of SVT at 165 beats per minute noted on cardiac monitoring in October 2022. Assessment & Plan (11/17/2024 3:15 PM CDT): We discussed brief SVT episode in October 2022. Patient is now on digoxin 0.25 mg daily and metoprolol tartrate 25 mg p.o. b.i.d.. No change in medical regimen here. Jean Paul positive 09/24/2022 Osteoarthritis 07/01/2022 Primary osteoarthritis of right hip 05/19/2022 Overview (05/19/2022): Added automatically from request for surgery [id number] Encounters Date Type Department Care Team Description 01/02/2025 8:45 AM SPECIMEN TRANSPORTER Office Visit [facility] Medicine Cardiology [facility] [address] [place] [address] [place] [address] Carlos Eduardo Mcneil MD PhD Atrial flutter, paroxysmal (HCC) (Primary Dx) 01/02/2025 Telephone [facility] Medicine Cardiology [facility] [address] [place] [address] [place] [address] Carlos Eduardo Mcneil MD PhD 01/02/2025 Results [facility]-Up [facility] [address] [place] [address] [place] [address] Carlos Eduardo Mcneil MD PhD ECG 12 lead 11/17/2024 2:45 PM CDT Office Visit [facility] at [address] [place] [id number] Reginaldo Gonzalez MD Atrial flutter, paroxysmal (HCC) (Primary Dx); PSVT (paroxysmal supraventricular tachycardia) from Last 3 Months Surgical History Surgery Date Site/Laterality Comments WRIST FRACTURE SURGERY COLONOSCOPY HIP ARTHROPLASTY 06/23/2022 - 07/23/2022 Medical History Medical History Date Comments PONV (postoperative nausea and vomiting) Family History Medical History Relation Name Comments Cancer Other Mental illness Other Transient ischemic attack Paternal Grandfather Anesthesia problems Neg Hx Relation Name Status Comments Other Paternal Grandfather Social History Tobacco Use Types Packs/Day Years Used Date Smoking Tobacco: Former Cigarettes Q uit: 04/23/2022 Passive Smoke Exposure: Past Tobacco Cessation:Counseling Given: Not Answered Alcohol Use Standard Drinks/Week Comments Yes 4 [...] on file Legal Sex Female 5:34 AM SPECIMEN TRANSPORTER Gender Identity Female 12/13/2019 8:33 AM CDT Sexual Orientation Straight 12/13/2019 8: 33 AM CDT Last Filed Vital Signs Vital Sign Reading Time Taken Comments Blood Pressure 134/82 01/02/2025 8:51 AM SPECIMEN TRANSPORTER Pulse 49 01/02/2025 8:51 AM SPECIMEN TRANSPORTER Temperature 36.2 C (97.1 F) 10/11/2024 11:38 AM CDT Respiratory Rate 10 11/17/2024 2:49 PM CDT Oxygen Saturation 98% 01/02/2025 8:51 AM SPECIMEN TRANSPORTER Inhaled Oxygen Concentration - - Weight 66.1 kg (145 lb 12.8 oz) 01/02/2025 8:51 AM SPECIMEN TRANSPORTER Height 165.1 cm (5' 5) 01/02/2025 8:51 AM SPECIMEN TRANSPORTER Body Mass Index 24.26 01/02/2025 8:51 AM SPECIMEN TRANSPORTER Plan of Treatment Upcoming Encounters Date Type Department Care Team (Latest Contact Info) Description 03/23/2025 7:30 AM SPECIMEN TRANSPORTER Hospital Encounter [facility] [address] [place] [address] Carlos Eduardo Mcneil MD PhD [address] [address] Atrial flutter, paroxysmal (HCC); PSVT (paroxysmal supraventricular tachycardia) 03/23/2025 7:30 AM SPECIMEN TRANSPORTER - 03/23/2025 11:03 AM SPECIMEN TRANSPORTER Surgery [facility] [address] [place] [address] Carlos Eduardo Mcneil MD PhD [address] [address] ABLATION SUPRAVENTRICULAR TACHYCARDIA (SVT) [address] Health Maintenance Due Date Last Done Comments Breast Cancer Screening-Mammogram 1961 Cervical Cancer Screening 1961 Colon Cancer Screening-Colonoscopy 1961 Depression Screening 1961 Hepatitis C Screening 1961 Hepatitis B Screening 05/03/1979 Regular Well Visit/Exam 18-64 05/03/1979 Zoster Vaccine (1 of 2) 05/03/2011 DTaP/Tdap/Td Vaccine (2 - Td or Tdap) 05/23/2024 05/23/2014 Covid-19 Vaccine (3 - 2024-2 6 season) 2024 06/12/2020, 05/22/2020 Influenza Vaccine (#1) 2024 Pneumococcal vaccine <65 Aged Out No longer eligible based on patient's age to complete this topic Goals Goal Patient Goal Type Associated Problems Recent Progress Patient-Stated? Author Autogenera manas Goal Care Plan Autogenerated Problem No Norma Mon RN Medical Devices Implanted Type Area Patient Liaison Device Identifier Shelf Expiration Date Model / Serial / Lot [employer] Cup Acetabular Bi Mentum Od49mm Femoral Proximal Press Fit [id number] - Sna - [id number] Implanted:Qty: 1 on 10/16/2022 by John Boss MD at [facility] Other - see comments Left: Hip [employer] [id number] 07/24/2027 [id number] / NA / [id number] Description:Implant pause pe rformed. [employer] Liner Acet Hip Size 28 Poly Bi Mentum Altrx 49mm [id number] - Sna - [id number] Implanted:Qty: 1 on 10/16/2022 by John Boss MD at [facility] Other - see comments Left: Hip [employer] [id number] 04/22/2026 [id number] / NA / [id number] Description:Implant pause pe rformed. [employer] Actis L107 Mm Collar Hip 6 High Offset Stem Femoral [id number] - Sna - [id number] Implanted:Qty: 1 on 10/16/2022 by John Boss MD at [facility] Other - see comments Left: Hip [employer] [id number] 07/23/2032 [id number] / NA / [id number] Description:Implant pause pe rformed. [employer] Articul/Malvin 28mm Cementless Hip +5mm 12/14 Taper Head Femoral Latex Free [id number] - Sna - [id number] Implanted:Qty: 1 on 10/16/2022 by John Boss MD at [facility] Other - see comments Left: Hip [employer] [id number] 04/23/2027 [id number] / NA / [id number] Description:Implant pause pe rformed. [employer] Cup Acetabular Bi Mentum Od49mm Femoral Proximal Press Fit [id number] - [id number] Implanted:Qty: 1 on 07/01/2022 by John Boss MD at [facility] Right: Hip [employer] [id number] 04/23/2027 [id number] / / [id number] [employer] Articul/Malvin 28mm Cementless Hip +1.5mm 12/14 Taper Head Femoral Latex Free [id number] - [id number] Implanted:Qty: 1 on 07/01/2022 by John Boss MD at [facility] Right: Hip [employer] [id number] 05/24/2027 [id number] / / [id number] [employer] Liner Acet Hip Size 28 Poly Bi Mentum Altrx 49mm [id number] - [id number] Implanted:Qty: 1 on 07/01/2022 by John Boss MD at [facility] Right: Hip [employer] [id number] 08/22/2026 [id number] / / [id number] [employer] Actis L107 Mm Collar Hip 6 High Offset Stem Femoral [id number] - [id number] Implanted:Qty: 1 on 07/01/2022 by John Boss MD at [facility] Right: Hip [employer] [id number] 03/25/2032 [id number] / / [id number] Procedures Procedure Name Priority Date/Time Associated Diagnosis Comments ECG 12-LEAD Routine 01/02/2025 8:48 AM SPECIMEN TRANSPORTER Atrial flutter, paroxysmal (HCC) from Last 3 Months Results * ECG 12 lead (01/02/2025 8:48 AM SPECIMEN TRANSPORTER) us Carlos Eduardo Mcneil MD PhD ECG ORDERABLES Edited Result - Final from Last 3 Months Additional Health Concerns Active Problems Noted Date Diagnosed Date Autogenerated Problem 01/05/2025 Insurance CHOICE PLUS CHOICE PLUS CHOICE PLUS [facility] CHOICE PLUS Advance Directives For more information, please contact: [phone] * Full Code (Latest Code Status on File) Date Activated Date Inactivated Comments 10/10/2024 7:27 PM 10/11/2024 7:55 PM * Full Code Date Activated Date Inactivated Comments 10/10/2024 7:19 PM 10/10/2024 7:27 PM * Full Code Date Activated Date Inactivated Comments 10/16/2022 10:44 AM 10/17/2022 6:55 PM * Full Code Date Activated Date Inactivated Comments 07/01/2022 9:03 AM 07/01/2022 6:26 PM Care Teams Bushler Relationship Specialty Start Date End Date Klaudia Galvez DO PCP - General Family Medicine 11/07/22
== END 2025-01-23 07:16 | disposition home or self-care (01) ==
LOC: ANHFOHIMG 07:16
PROVIDERS: PCP Family Medicine; Visit Provider Obstetrics & Gynecology
DX: Z12.31 Encounter for screening mammogram for malignant neoplasm of breast (principal)
CPT/HCPCS: 77063; 77067